=== PATIENT | female | born 1970 | race Caucasian/White ===

== ENCOUNTER 2021-10-12 13:48 | Inpatient (IN) ==
[2021-10-12] MEDS ORDERED: Acetaminophen 325 MG TABLET PO PRN (17:06)
[2021-10-12] MEDS ORDERED: Melatonin 3 MG TABLET PO PRN (17:06)
[2021-10-12] MEDS ORDERED: Ondansetron 4 MG/2 ML VIAL IVP PRN (17:06)
[2021-10-12] MEDS ORDERED: Dextrose Gel 15 GM/37.5 ML TUBE PO PRN ×2 (17:18)
[2021-10-12] MEDS ORDERED: Azithromycin 250 MG TABLET PO ONE (17:18)
[2021-10-12] MEDS ORDERED: Ipratropium/Albuterol Neb 3 ML IH PRN (17:18)
[2021-10-12] MEDS ORDERED: D5% in Water 1,000 ML IVC PRN (17:18)
[2021-10-12] MEDS ORDERED: *HR* Dextrose 50 % in Water (Syg) 50 ML SYRINGE IVP PRN (17:18)
[2021-10-12] MEDS ORDERED: Perflutren Lipid Microsphere 1.3 ML in 0.9 % Sodium Chloride 8.7 ML IVP PRN (17:48)
[2021-10-12] MEDS: Furosemide 40 MG/4 ML VIAL IVP SCH (18:14)
[2021-10-12] MEDS: Ipratropium/Albuterol Neb 3 ML IH SCH ×2 (20:47→23:41)
[2021-10-12 22:14] LABS: Adenovirus Not Detected (Not Detect); Bordetella Pertussis Not Detected (Not Detect); Chlamydophila pneumoniae Not Detected (Not Detect); Coronavirus 229E Not Detected (Not Detect); Coronavirus HKU1 Not Detected (Not Detect); Coronavirus NL63 Not Detected (Not Detect); Coronavirus OC43 Not Detected (Not Detect); Human Metapneumovirus Not Detected (Not Detect); Human Rhinovirus/Enterovirus Not Detected (Not Detect); Influenza A Subtype 2009 H1 Not Detected (Not Detect); Influenza B Not Detected (Not Detect); Mycoplasma pneumoniae Not Detected (Not Detect); Parainfluenza Virus 1 Not Detected (Not Detect); Parainfluenza Virus 2 Not Detected (Not Detect); Parainfluenza Virus 3 Not Detected (Not Detect); Parainfluenza Virus 4 Not Detected (Not Detect); Respiratory Syncytial Virus Not Detected (Not Detect); SARS-CoV-2 Not Detected (Not Detect)
[2021-10-12] MEDS: Insulin LISPRO 300 UNITS/3 ML VIAL SUBQ SCH (22:38)
[2021-10-12] MEDS: MethylPREDNISolone 40 MG/ML VIAL IVP SCH (23:42)
[2021-10-13 01:16] LABS: Hematocrit 39.9 % (35.3-44.9); Hemoglobin 12.9 g/dL (11.5-15.4); Mean Corpuscular HGB Conc 32.3 g/dL (31.6-35.5); Mean Corpuscular Volume 86.7 fL (83.0-100.0); Mean Platelet Volume 9.9 fL (9.4-12.4); Platelet Count 257 K/mcL (140-400); Red Cell Distribution Width 14.2 % (11.5-14.5); White Blood Count 7.9 K/mcL (4.3-11.1)
[2021-10-13 01:42] LABS: BUN/Creatinine Ratio 16 (6-26); Blood Urea Nitrogen 13 mg/dL (6-20); Calcium 9.6 mg/dL (8.6-10.3); Carbon Dioxide 26 mEq/L (23-29); Chloride 95 mEq/L (98-107); Glucose 265 mg/dL (70-105); Osmolality,Calculated 287 (280-300); Phosphorous 2.5 mg/dL (2.7-4.5); Potassium 3.5 mEq/L (3.5-5.1); Sodium 134 mEq/L (136-145); Troponin I < 0.03 ng/mL (< 0.04); eGFR For African Americans > 60 (> 60); eGFR For Non-African Americans > 60 (> 60)
[2021-10-13 02:39] LABS: Estimated Average Glucose 128 mg/dl; Hemoglobin A1C 6.1 %
[2021-10-13] MEDS: Ipratropium/Albuterol Neb 3 ML IH SCH ×6 (03:50→23:56)
[2021-10-13] MEDS: *HR* Enoxaparin 40 MG/0.4 ML SYRINGE SQ SCH (05:34)
[2021-10-13] MEDS: Famotidine 20 MG/2 ML VIAL IVP SCH ×2 (05:57→16:18)
[2021-10-13] MEDS: Insulin LISPRO 300 UNITS/3 ML VIAL SUBQ SCH ×4 (08:09→20:18)
[2021-10-13] MEDS: Azithromycin 250 MG TABLET PO SCH (08:11)
[2021-10-13] MEDS: Furosemide 40 MG/4 ML VIAL IVP SCH (08:11)
[2021-10-13] MEDS: MethylPREDNISolone 40 MG/ML VIAL IVP SCH ×2 (08:13→16:19)
[2021-10-14] MEDS: MethylPREDNISolone 40 MG/ML VIAL IVP SCH ×4 (00:15→23:44)
[2021-10-14] MEDS: Ipratropium/Albuterol Neb 3 ML IH SCH ×6 (04:13→23:37)
[2021-10-14] MEDS: *HR* Enoxaparin 40 MG/0.4 ML SYRINGE SQ SCH (06:15)
[2021-10-14] MEDS: Famotidine 20 MG/2 ML VIAL IVP SCH ×2 (06:16→16:31)
[2021-10-14] MEDS: Insulin LISPRO 300 UNITS/3 ML VIAL SUBQ SCH ×4 (07:57→21:34)
[2021-10-14] MEDS: Furosemide 40 MG/4 ML VIAL IVP SCH (07:57)
[2021-10-14] MEDS: Azithromycin 250 MG TABLET PO SCH (07:58)
[2021-10-14 08:02] LABS: Basophils % 0.1 %; Hematocrit 41.5 % (35.3-44.9); Hemoglobin 12.7 g/dL (11.5-15.4); Immature Granulocytes % 0.6 % (0-4); Lymphocytes # 1.4 K/mcL (0.6-4.6); Lymphocytes % 10.1 %; Mean Corpuscular HGB Conc 30.6 g/dL (31.6-35.5); Mean Corpuscular Hemoglobin 27.1 pg (28.0-33.3); Mean Corpuscular Volume 88.7 fL (83.0-100.0); Mean Platelet Volume 9.9 fL (9.4-12.4); Monocytes # 0.5 K/mcL (0.0-1.3); Monocytes % 3.4 %; Platelet Count 276 K/mcL (140-400); Red Blood Count 4.68 M/mcL (3.82-4.97); Red Cell Distribution Width 14.8 % (11.5-14.5); Segmented Neutrophils % 85.8 %
[2021-10-14] MEDS ORDERED: *HR* Norepinephrine 4 MG/4 ML VIAL IVC ONE (08:10)
[2021-10-14] MEDS ORDERED: Albumin Human 5% 12.5 GM/250 ML IV.SOLN ONE (08:10)
[2021-10-14] MEDS ORDERED: *HR* Vasopressin 20 UNIT/ML VIAL ONE (08:10)
[2021-10-14 08:17] LABS: BUN/Creatinine Ratio 27 (6-26); Blood Urea Nitrogen 19 mg/dL (6-20); Calcium 9.8 mg/dL (8.6-10.3); Carbon Dioxide 33 mEq/L (23-29); Chloride 99 mEq/L (98-107); Glucose 185 mg/dL (70-105); Magnesium 2.4 mg/dL (1.6-2.6); Osmolality,Calculated 295 (280-300); Phosphorous 3.4 mg/dL (2.7-4.5); Potassium 4.2 mEq/L (3.5-5.1); Sodium 139 mEq/L (136-145); eGFR For African Americans > 60 (> 60); eGFR For Non-African Americans > 60 (> 60)
[2021-10-14] MEDS ORDERED: *HR* EPINEPHrine 1 MG/10 ML SYRINGE INTRATRACH PRN (09:14)
[2021-10-14] MEDS ORDERED: Lidocaine -MPF 2% 5 ML VIAL ONE (09:27)
[2021-10-14] MEDS ORDERED: *HR* Succinylcholine 200 MG/10 ML VIAL IVP ONE (09:27)
[2021-10-14] MEDS ORDERED: Ondansetron 4 MG/2 ML VIAL ONE (09:27)
[2021-10-14] MEDS ORDERED: Lidocaine -MPF 4% 5 ML AMPUL ONE (09:27)
[2021-10-14] MEDS ORDERED: *HR* FentaNYL (PF) 100 MCG/2 ML VIAL IVP PRN (10:00)
[2021-10-14] MEDS ORDERED: Ondansetron 4 MG/2 ML VIAL IVP PRN (10:00)
[2021-10-14] MEDS ORDERED: Albuterol 2.5 MG/3 ML NEBULIZER IH PRN (10:00)
[2021-10-14 15:47] LABS: Appearance of Body Fluid Hazy (Clear)
[2021-10-14 15:48] LABS: Volume of Body Fluid 20 mL
[2021-10-15 03:14] LABS: Basophils % 0.1 %; Hematocrit 40.4 % (35.3-44.9); Hemoglobin 12.3 g/dL (11.5-15.4); Immature Granulocytes % 0.9 % (0-4); Lymphocytes # 1.4 K/mcL (0.6-4.6); Lymphocytes % 10.5 %; Mean Corpuscular HGB Conc 30.4 g/dL (31.6-35.5); Mean Corpuscular Hemoglobin 27.2 pg (28.0-33.3); Mean Corpuscular Volume 89.2 fL (83.0-100.0); Mean Platelet Volume 9.8 fL (9.4-12.4); Monocytes # 0.6 K/mcL (0.0-1.3); Monocytes % 4.3 %; Platelet Count 260 K/mcL (140-400); Red Blood Count 4.53 M/mcL (3.82-4.97); Red Cell Distribution Width 14.6 % (11.5-14.5); Segmented Neutrophils % 84.2 %; White Blood Count 13.1 K/mcL (4.3-11.1)
[2021-10-15 03:36] LABS: BUN/Creatinine Ratio 28 (6-26); Blood Urea Nitrogen 21 mg/dL (6-20); Calcium 9.9 mg/dL (8.6-10.3); Carbon Dioxide 35 mEq/L (23-29); Chloride 96 mEq/L (98-107); Glucose 175 mg/dL (70-105); Magnesium 2.3 mg/dL (1.6-2.6); Osmolality,Calculated 291 (280-300); Phosphorous 3.4 mg/dL (2.7-4.5); Potassium 4.2 mEq/L (3.5-5.1); Sodium 137 mEq/L (136-145); eGFR For African Americans > 60 (> 60); eGFR For Non-African Americans > 60 (> 60)
[2021-10-15] MEDS: Ipratropium/Albuterol Neb 3 ML IH SCH ×6 (04:21→23:43)
[2021-10-15] MEDS: Famotidine 20 MG/2 ML VIAL IVP SCH (05:43)
[2021-10-15] MEDS: *HR* Enoxaparin 40 MG/0.4 ML SYRINGE SQ SCH (05:43)
[2021-10-15] MEDS: Insulin LISPRO 300 UNITS/3 ML VIAL SUBQ SCH ×4 (08:26→21:08)
[2021-10-15] MEDS: MethylPREDNISolone 40 MG/ML VIAL IVP SCH ×2 (08:26→17:22)
[2021-10-15] MEDS: Furosemide 40 MG/4 ML VIAL IVP SCH (08:27)
[2021-10-15] MEDS: Azithromycin 250 MG TABLET PO SCH (08:27)
[2021-10-15] MEDS ORDERED: Chloraseptic Spray 177 ML BOTTLE MM PRN (11:54)
[2021-10-16] MEDS: MethylPREDNISolone 40 MG/ML VIAL IVP SCH ×4 (00:03→23:31)
[2021-10-16] MEDS: Ipratropium/Albuterol Neb 3 ML IH SCH ×6 (03:48→23:04)
[2021-10-16] MEDS: *HR* Enoxaparin 40 MG/0.4 ML SYRINGE SQ SCH (05:10)
[2021-10-16 05:55] LABS: Basophils % 0.2 %; Hematocrit 41.6 % (35.3-44.9); Hemoglobin 12.7 g/dL (11.5-15.4); Immature Granulocytes % 0.7 % (0-4); Lymphocytes # 1.9 K/mcL (0.6-4.6); Lymphocytes % 16.9 %; Mean Corpuscular HGB Conc 30.5 g/dL (31.6-35.5); Mean Corpuscular Hemoglobin 27.2 pg (28.0-33.3); Mean Corpuscular Volume 89.1 fL (83.0-100.0); Monocytes # 0.4 K/mcL (0.0-1.3); Monocytes % 3.7 %; Neutrophils # 8.6 K/mcL (1.6-8.9); Platelet Count 263 K/mcL (140-400); Red Blood Count 4.67 M/mcL (3.82-4.97); Red Cell Distribution Width 14.6 % (11.5-14.5); Segmented Neutrophils % 78.5 %
[2021-10-16 06:14] LABS: BUN/Creatinine Ratio 32 (6-26); Blood Urea Nitrogen 23 mg/dL (6-20); Calcium 9.7 mg/dL (8.6-10.3); Carbon Dioxide 36 mEq/L (23-29); Chloride 95 mEq/L (98-107); Glucose 216 mg/dL (70-105); Magnesium 2.4 mg/dL (1.6-2.6); Osmolality,Calculated 290 (280-300); Phosphorous 4.1 mg/dL (2.7-4.5); Potassium 4.6 mEq/L (3.5-5.1); Sodium 135 mEq/L (136-145); eGFR For African Americans > 60 (> 60); eGFR For Non-African Americans > 60 (> 60)
[2021-10-16] MEDS: Furosemide 40 MG/4 ML VIAL IVP SCH (08:54)
[2021-10-16] MEDS: Azithromycin 250 MG TABLET PO SCH (08:54)
[2021-10-16] MEDS: Insulin LISPRO 300 UNITS/3 ML VIAL SUBQ SCH ×4 (08:57→19:50)
[2021-10-17 01:30] LABS: Influenza A PCR Body Fluid NOT DETECTED; Influenza B PCR Body Fluid NOT DETECTED; RVP Body Fluid Source BAL
[2021-10-17 02:01] LABS: Basophils % 0.1 %; Hematocrit 41.5 % (35.3-44.9); Hemoglobin 13.1 g/dL (11.5-15.4); Immature Granulocytes % 0.6 % (0-4); Lymphocytes # 2.6 K/mcL (0.6-4.6); Mean Corpuscular HGB Conc 31.6 g/dL (31.6-35.5); Mean Corpuscular Hemoglobin 27.9 pg (28.0-33.3); Mean Corpuscular Volume 88.5 fL (83.0-100.0); Mean Platelet Volume 9.8 fL (9.4-12.4); Monocytes # 0.5 K/mcL (0.0-1.3); Monocytes % 4.5 %; Neutrophils # 7.8 K/mcL (1.6-8.9); Platelet Count 245 K/mcL (140-400); Red Blood Count 4.69 M/mcL (3.82-4.97); Red Cell Distribution Width 14.5 % (11.5-14.5); Segmented Neutrophils % 70.8 %
[2021-10-17 02:22] LABS: BUN/Creatinine Ratio 36 (6-26); Blood Urea Nitrogen 26 mg/dL (6-20); Calcium 9.3 mg/dL (8.6-10.3); Carbon Dioxide 34 mEq/L (23-29); Chloride 93 mEq/L (98-107); Glucose 188 mg/dL (70-105); Magnesium 2.3 mg/dL (1.6-2.6); Osmolality,Calculated 292 (280-300); Phosphorous 3.8 mg/dL (2.7-4.5); Potassium 4.2 mEq/L (3.5-5.1); Sodium 136 mEq/L (136-145); eGFR For African Americans > 60 (> 60); eGFR For Non-African Americans > 60 (> 60)
[2021-10-17] MEDS: Ipratropium/Albuterol Neb 3 ML IH SCH ×6 (03:50→23:48)
[2021-10-17] MEDS: *HR* Enoxaparin 40 MG/0.4 ML SYRINGE SQ SCH (05:09)
[2021-10-17] MEDS: Insulin LISPRO 300 UNITS/3 ML VIAL SUBQ SCH ×4 (07:11→20:17)
[2021-10-17] MEDS: MethylPREDNISolone 40 MG/ML VIAL IVP SCH ×2 (09:56→17:37)
[2021-10-17] MEDS: Furosemide 40 MG/4 ML VIAL IVP SCH (09:57)
[2021-10-17 10:44] LABS: RSV PCR Body Fluid NOT DETECTED
[2021-10-17] MEDS: Sennosides/Docusate Sodium TABLET PO SCH (20:17)
[2021-10-18] MEDS: MethylPREDNISolone 40 MG/ML VIAL IVP SCH ×2 (00:35→09:25)
[2021-10-18] MEDS: Ipratropium/Albuterol Neb 3 ML IH SCH ×3 (04:03→11:31)
[2021-10-18] MEDS: *HR* Enoxaparin 40 MG/0.4 ML SYRINGE SQ SCH (04:59)
[2021-10-18 05:48] LABS: Basophils % 0.2 %; Eosinophils % 0.1 %; Immature Granulocytes % 0.5 % (0-4); Lymphocytes # 2.9 K/mcL (0.6-4.6); Lymphocytes % 25.8 %; Mean Corpuscular HGB Conc 31.8 g/dL (31.6-35.5); Mean Corpuscular Hemoglobin 28.1 pg (28.0-33.3); Mean Corpuscular Volume 88.4 fL (83.0-100.0); Mean Platelet Volume 9.6 fL (9.4-12.4); Monocytes # 0.5 K/mcL (0.0-1.3); Monocytes % 4.7 %; Neutrophils # 7.7 K/mcL (1.6-8.9); Platelet Count 249 K/mcL (140-400); Red Blood Count 4.98 M/mcL (3.82-4.97); Red Cell Distribution Width 14.3 % (11.5-14.5); Segmented Neutrophils % 68.7 %; White Blood Count 11.3 K/mcL (4.3-11.1)
[2021-10-18 06:09] LABS: BUN/Creatinine Ratio 36 (6-26); Blood Urea Nitrogen 29 mg/dL (6-20); Calcium 9.7 mg/dL (8.6-10.3); Carbon Dioxide 37 mEq/L (23-29); Chloride 92 mEq/L (98-107); Glucose 161 mg/dL (70-105); Magnesium 2.4 mg/dL (1.6-2.6); Osmolality,Calculated 289 (280-300); Phosphorous 3.9 mg/dL (2.7-4.5); Potassium 4.3 mEq/L (3.5-5.1); Sodium 135 mEq/L (136-145); eGFR For African Americans > 60 (> 60); eGFR For Non-African Americans > 60 (> 60)
[2021-10-18 06:53] VITALS: TEMP 97.5
[2021-10-18] MEDS: Sennosides/Docusate Sodium TABLET PO SCH (09:24)
[2021-10-18] MEDS: Furosemide 40 MG/4 ML VIAL IVP SCH (09:24)
[2021-10-18] MEDS: Insulin LISPRO 300 UNITS/3 ML VIAL SUBQ SCH ×2 (09:25→11:39)
[2021-10-18 11:05] VITALS: BP 103/69; PULSE 86
[2021-10-18 11:40] VITALS: O2SAT 99
== END 2021-10-18 12:33 | disposition home or self-care (01) | DRG 142 ==
LOC: 2ANU
PROVIDERS: ADMIT Internal Medicine; ATTEND Internal Medicine
PROC: ENDOBRF (2021-10-14 08:30)

== ENCOUNTER 2021-11-01 03:09 | Inpatient (IN) ==
[2021-11-01] MEDS ORDERED: Naloxone 0.4 MG/ML INJ IVP PRN (06:28)
[2021-11-01 07:17] LABS: Basophils % 0.1 %; Eosinophils # 0.2 K/mcL (0.0-0.6); Eosinophils % 2.3 %; Hematocrit 33.3 % (35.3-44.9); Hemoglobin 10.7 g/dL (11.5-15.4); Immature Granulocytes % 0.2 % (0-4); Lymphocytes % 24.1 %; Mean Corpuscular HGB Conc 32.1 g/dL (31.6-35.5); Mean Corpuscular Hemoglobin 27.6 pg (28.0-33.3); Mean Corpuscular Volume 85.8 fL (83.0-100.0); Mean Platelet Volume 9.8 fL (9.4-12.4); Monocytes # 0.3 K/mcL (0.0-1.3); Monocytes % 3.9 %; Neutrophils # 5.8 K/mcL (1.6-8.9); Platelet Count 142 K/mcL (140-400); Red Blood Count 3.88 M/mcL (3.82-4.97); Red Cell Distribution Width 14.8 % (11.5-14.5); Segmented Neutrophils % 69.4 %; White Blood Count 8.3 K/mcL (4.3-11.1)
[2021-11-01 07:32] LABS: VBG HCO3 28 mEq/L (21-27); VBG PCO2 49 mmHg (41-51); VBG PH 7.36 pH Units (7.32-7.42); VBG PO2 124 mmHg (25-50)
[2021-11-01 07:38] LABS: Alanine Aminotransferase 15 Units/L (7-52); Albumin 3.1 g/dL (3.5-5.7); Albumin/Globulin Ratio 1.1 (1.1-2.2); Alkaline Phosphatase 92 Units/L (34-104); Aspartate Amino Transferase 14 Units/L (13-39); BUN/Creatinine Ratio 14 (6-26); Bilirubin,Total 0.5 mg/dL (0.3-1.0); Blood Urea Nitrogen 8 mg/dL (6-20); Calcium 7.9 mg/dL (8.6-10.3); Carbon Dioxide 28 mEq/L (23-29); Chloride 102 mEq/L (98-107); Globulin 2.9 g/dL (2.4-3.5); Glucose 200 mg/dL (70-105); Magnesium 1.9 mg/dL (1.6-2.6); Osmolality,Calculated 286 (280-300); Phosphorous 3.1 mg/dL (2.7-4.5); Potassium 3.2 mEq/L (3.5-5.1); Sodium 136 mEq/L (136-145); eGFR For African Americans > 60 (> 60); eGFR For Non-African Americans > 60 (> 60)
[2021-11-01] MEDS ORDERED: Isovue-370 500 ML BOTTLE IVP ONE (07:59)
[2021-11-01] MEDS ORDERED: *HR* Dextrose 50 % in Water (Syg) 50 ML SYRINGE IVP PRN (08:00)
[2021-11-01] MEDS ORDERED: Acetaminophen 325 MG TABLET PO PRN (08:00)
[2021-11-01] MEDS ORDERED: Dextrose 4 GM Chewable Tablets PO PRN ×2 (08:00)
[2021-11-01] MEDS ORDERED: D5% in Water 1,000 ML IVC PRN (08:00)
[2021-11-01] MEDS ORDERED: Ondansetron ODT 4 MG TAB.RAPDIS SL PRN (08:00)
[2021-11-01] MEDS ORDERED: Potassium Chloride Elixir 20 MEQ/15 ML UDC PO ONE (08:20)
[2021-11-01 08:46] LABS: ABG Base Excess 4 mEq/L (-2 to 3); ABG HCO3 30 mEq/L (21-27); ABG Oxygen Saturation 97 % (95-98); ABG PCO2 49 mmHg (35-45); ABG PH 7.39 pH Units (7.32-7.45); ABG PO2 91 mmHg (85-104); ABG TCO2 32 mEq/L (20-26); Blood Gas Pressure Support 14 cm H2O
[2021-11-01] MEDS: Doxycycline 100 MG in 0.9 % Sodium Chloride Mini Bag 100 ML IVPB SCH ×2 (10:22→19:24)
[2021-11-01] MEDS: Piperacillin/Tazobactam 3.375 GM in 0.9 % Sodium Chloride Mini Bag 100 ML IVPB SCH ×3 (10:22→23:39)
[2021-11-01] MEDS ORDERED: Morphine Sulfate 2 MG/ML SYRINGE IVP PRN (11:19)
[2021-11-01] MEDS: Ipratropium/Albuterol Neb 3 ML IH SCH ×3 (11:21→19:41)
[2021-11-01] MEDS: Insulin LISPRO 300 UNITS/3 ML VIAL SUBQ SCH ×2 (14:35→19:33)
[2021-11-01] MEDS: methylPREDNISolone 125 MG/2 ML VIAL IVP SCH ×3 (14:35→23:39)
[2021-11-01] MEDS: *HR* Heparin 5,000 UNIT/ML VIAL SQ SCH ×2 (14:36→20:25)
[2021-11-01] MEDS ORDERED: Melatonin 3 MG TABLET PO PRN (21:00)
[2021-11-01] MEDS ORDERED: Ringers Solution, Lactated 1,000 ML IVC SCH (22:15)
[2021-11-02] MEDS: Insulin LISPRO 300 UNITS/3 ML VIAL SUBQ SCH ×2 (00:05→05:54)
[2021-11-02 03:59] LABS: Basophils % 0.1 %; Hematocrit 35.2 % (35.3-44.9); Hemoglobin 11.3 g/dL (11.5-15.4); Immature Granulocytes % 0.4 % (0-4); Lymphocytes # 0.7 K/mcL (0.6-4.6); Lymphocytes % 9.3 %; Mean Corpuscular HGB Conc 32.1 g/dL (31.6-35.5); Mean Corpuscular Hemoglobin 28.2 pg (28.0-33.3); Mean Corpuscular Volume 87.8 fL (83.0-100.0); Mean Platelet Volume 10.1 fL (9.4-12.4); Monocytes # 0.1 K/mcL (0.0-1.3); Monocytes % 0.9 %; Neutrophils # 6.2 K/mcL (1.6-8.9); Platelet Count 157 K/mcL (140-400); Red Blood Count 4.01 M/mcL (3.82-4.97); Red Cell Distribution Width 14.6 % (11.5-14.5); Segmented Neutrophils % 89.3 %
[2021-11-02 04:19] LABS: BUN/Creatinine Ratio 15 (6-26); Blood Urea Nitrogen 8 mg/dL (6-20); Calcium 9.2 mg/dL (8.6-10.3); Carbon Dioxide 28 mEq/L (23-29); Chloride 102 mEq/L (98-107); Glucose 243 mg/dL (70-105); Osmolality,Calculated 290 (280-300); Potassium 3.8 mEq/L (3.5-5.1); Sodium 137 mEq/L (136-145); eGFR For African Americans > 60 (> 60); eGFR For Non-African Americans > 60 (> 60)
[2021-11-02] MEDS: Ipratropium/Albuterol Neb 3 ML IH SCH ×2 (04:20→09:44)
[2021-11-02] MEDS: *HR* Heparin 5,000 UNIT/ML VIAL SQ SCH (05:47)
[2021-11-02] MEDS: Doxycycline 100 MG in 0.9 % Sodium Chloride Mini Bag 100 ML IVPB SCH (05:48)
[2021-11-02] MEDS: methylPREDNISolone 125 MG/2 ML VIAL IVP SCH (05:48)
[2021-11-02] MEDS: Piperacillin/Tazobactam 3.375 GM in 0.9 % Sodium Chloride Mini Bag 100 ML IVPB SCH (09:20)
[2021-11-02 11:10] VITALS: O2SAT 90
[2021-11-02 11:49] VITALS: BP 112/61; PULSE 97; TEMP 98.2
[2021-11-02] MEDS ORDERED: Budesonide/Formoterol 160/4.5 1 PUFF INH IH SCH (22:00)
== END 2021-11-02 12:57 | disposition short-term general hospital (02) | DRG 720 ==
LOC: 3NENU → SUATTDRO 05:46
PROVIDERS: ADMIT Internal Medicine; ATTEND Internal Medicine